=== PATIENT | male | born 1980 | race Caucasian/White ===

== ENCOUNTER 2020-12-26 18:37 | Emergency (ER) | payer SELFPAY ==
[~2020-12-26] VITALS: Ht 170.2 cm; Wt 90.9 kg
--- NOTE | 2020-12-26 18:46 | PHYS DOC ---
Adult General HPI HPI Patient is a 40-year-old male, with no endorsed past medical history who presents with a chief complaint of right lower leg wound and concern for infection. States that last or Thursday he thinks he may have had an ingrown hair or cut his right lower extremity on something but is not sure what. States over the last several days it increased in size, redness and tenderness. States the tenderness is approximately 5 out of 10, dull and achy in nature. Also endorses recent onset dysuria without hematuria, discharge, genital lesions or trauma to the area. States he did have unprotected intercourse recently and was concerned about sexually transmitted infections and would like to be tested and treated for these. Denies any recent travel, fevers, chest pain, shortness of breath, abdominal pain, nausea, vomiting, hematuria, diarrhea or blood in the stool. States he is otherwise eating and drinking normally for him. States he is making urine and stool normally for him. Review of Systems Review of Systems Review of systems otherwise unremarkable except noted in HPI. Physical Exam Physical Exam Constitutional: Well developed, well nourished, no acute distress, non-toxic appearance. [] HENT: Normocephalic, atraumatic, bilateral external ears normal, oropharynx moist, no oral exudates, nose normal. [] Eyes: conjunctiva normal, no discharge. [] Cardiovascular:Heart rate regular rhythm] Lungs & Thorax: Bilateral breath sounds clear to auscultation [] Abdomen: soft, no tenderness, no masses, no pulsatile masses. [] Skin: Warm, dry, Extremities: Patient has an area on anterior right lower extremity that has an approximately 2 cm centralized lesion, scabbed over, elevated, indurated with no obvious fluctuance, with surrounding erythema spreading out several centimeters in all directions with some mild lower extremity edema. Neurologic: Alert and oriented X 3, normal motor function, normal sensory function, no focal deficits noted. [] Psychologic: Affect normal, judgement normal, mood normal. [] EKG EKG [] Radiology/Procedures Radiology/Procedures [] Heart Score C/O Chest Pain: No Risk Factors: Risk Factors: DM, Current or recent (<one month) smoker, HTN, HLP, family hi story of CAD, obesity. Risk Scores: Risk Factors: DM, Current or recent (<one month) smoker, HTN, HLP, family history of CAD, obesity. Course & Med Decision Making Course & Med Decision Making Patient is a 40-year-old male who presents with right lower extremity wound and concern for infection as well as concern for STI Vital signs not concerning. Physical exam noted above. Patient given Tylenol and ibuprofen for discomfort. [] Laboratory analysis not concerning. Imaging of the area with no obvious osseous abnormalities or gas formation. For concern of STI, patient opted for treatment today with IM Rocephin and a azithromycin. Advised that results of his STI testing would probably be available in 24 to 48 hours and he would be contacted but he could also feel free to call and check in. For lower extremity cellulitis, patient was offered admission for IV antibiotics. Patient stated he would not stay in the emergency department, and just wanted outpatient treatment. Gave risks of trying to treat his cellulitis with oral antibiotics including complete failure, partial improvement and then reemergence and complete resolution. Advised that it is quite possible that oral antibiotics may not work completely and he could experience worsening symptoms of the wound, systemic infection, severe illness, disability and/or and or circumstances. Patient states that he feels that the oral antibiotics will work and would like to try that. Gave strict return precautions to the ED. Patient grateful, verbalized understanding and agreed with plan of discharge. Dragon Disclaimer Dragon Disclaimer This electronic medical record was generated, in whole or in part, using a voice recognition dictation system. Departure Departure: Impression: Primary Impression: Cellulitis of right lower extremity Additional Impression: Concern about STD in male without diagnosis Disposition: 01 DC HOME SELF CARE/HOMELESS Condition: GOOD Referrals: PCP,NO (PCP) Patient Instructions: Cellulitis, [id number], Sexually Transmitted Disease, [id number] Additional Instructions: Please read the attached information. You were offered admission but decided to try outpatient therapy first. You were given the treatment for gonorrhea and chlamydia today in the emergency department. Your laboratory testing for these should result in 24 to 48 hours and you will be notified. Please feel free to call with for your results as well. You were started on clindamycin and antibiotic used for your cellulitis. Please take all medications as exactly prescribed with food until medicine is gone. Please follow-up as soon as you can with your primary care physician to discuss your ED visit and set up a follow-up in the next week to 10 days for a wound check. As discussed extensively, please come back to the emergency department with any new or concerning symptoms. Scripts Clindamycin Hcl (CLINDAMYCIN HCL) 150 Mg Capsule 3 CAP PO TID for cellulitis for 10 Days, #90 CAP Prov: BEV BAHENA MD 12/26/20 Problem Qualifiers BEV BAHENA MD Dec 26, 2020 18:46
[2020-12-26] MEDS ORDERED: ACETAMINOPHEN 500 MG TABLET PO ONE (19:00)
[2020-12-26] MEDS ORDERED: IBUPROFEN 600 MG TABLET. PO ONE (19:00)
[2020-12-26 19:15] LABS: BASO # 0.1 x10^3/uL (0.0-0.2); BASO % 1 % (0-3); EOS # 0.2 x10^3/uL (0.0-0.7); EOS % 3 % (0-3); HEMOGLOBIN 14.2 g/dL (13.0-17.5); LYMPH # 1.7 x10^3/uL (1.0-4.8); LYMPH % 23 % (24-48); MEAN CORPUSCULAR HEMOGLOBIN 31 pg (25-35); MEAN CORPUSCULAR HGB CONC 35 g/dL (31-37); MEAN CORPUSCULAR VOLUME 89 fL (79-100); MONO # 0.6 x10^3/uL (0.0-1.1); MONO % 8 % (0-9); NEUT # 4.8 x10^3uL (1.8-7.7); NEUT % 66 % (31-73); PLATELET COUNT 351 x10^3/uL (140-400); RED BLOOD COUNT 4.58 x10^6/uL (4.30-5.70); RED CELL DISTRIBUTION WIDTH 13.5 % (11.5-14.5); WHITE BLOOD COUNT 7.2 x10^3/uL (4.0-11.0)
[2020-12-26 19:28] LABS: CALCIUM 8.6 mg/dL (8.5-10.1); CREATININE 1.1 mg/dL (0.7-1.3); GFR 74.5; POTASSIUM 3.8 mmol/L (3.5-5.1)
[2020-12-26 19:40] VITALS: BP 137/77
--- NOTE | 2020-12-26 19:45 | RAD ---
INDICATION: Reason: Trauma to right anterior lower mid leg with sore, pain / Spl. Instructions: / Hi story: COMPARISON: None. IMPRESSION: Right lower le views obtained. Soft tissue swelling is identified. Degenerative changes at the kn ee and ankle. No definite tibia or fibula fracture. Electronically signed by: Abdullahi Membreno MD (12/26/2020 7:43 PM) [id number]
[2020-12-26] MEDS ORDERED: cefTRIAXone IM 500 MG VIAL. IM ONE (20:00)
[2020-12-26] MEDS ORDERED: AZITHROMYCIN 250 MG TABLET. PO ONE (20:00)
[2020-12-26] MEDS ORDERED: CLINDAMYCIN HCL 150 MG CAPSULE PO ONE (20:00)
[2020-12-26] MEDS ORDERED: CLIN150C15 PO (20:11)
[2020-12-26 20:37] LABS: CLARITY,URINE CLEAR; COLOR,URINE YELLOW
[2020-12-26 20:38] LABS: BACTERIA,URINE 0 /HPF (0-FEW); BILIRUBIN,URINE NEG (NEG); GLUCOSE,URINE NEG (NEG); NITRITE,URINE NEG (NEG); RBC,URINE 0 /HPF (0-2); UROBILINOGEN,URINE 0.2 mg/dL (0.2 mg/dL); WBC,URINE 0 /HPF (0-4)
== END 2020-12-26 20:34 | disposition home or self-care (01) ==
LOC: ER 18:37
DX: L03.115 Cellulitis of right lower limb (principal); Z20.2 Contact with and (suspected) exposure to infections with a predominantly sexual mode of transmission
CPT/HCPCS: 36415; 73590; 80048; 81001; 83605; 85025; 96372; 99284; J0696

== ENCOUNTER 2021-02-12 03:09 | Emergency (ER) | payer SELFPAY ==
[~2021-02-12] VITALS: Ht 170.2 cm; Wt 81.6 kg
[~2021-02-12 03:09] MED LIST: CLIN150C15 PO
[2021-02-12 03:14] VITALS: BP 165/105
--- NOTE | 2021-02-12 03:20 | PHYS DOC ---
Past History Past Medical History: No Pertinent History Past Surgical History: No Surgical History Alcohol Use: None General Adult HPI: HPI: ".. I think I got a snake bite... about 2 pm today..on the back of my head and neck.. .. not sure.. they can sneak up on you... I was just standing around doing nothing... When I got bit by a snake....l..also cut my thumb......"... Patient is a 40 year old male who presents with above hx and complaints of snake bite to back of neck. There is no findings of examination or bite petit on the back of his neck or head. Patient also complaining of a superficial cut to her right thumb. Both injury occurred at approximately 1400 hrs. yesterday. Patient has been drinking heavily since yesterday. Patient reportedly up-to-date with his tetanus. No recent travel. No specific ill contacts. No history immunosuppression. Patient does admit to heavy alcohol use. Patient does smoke tobacco. Patient last seen in the emergency room on 12/26/2020 for concerns about an STD. After unprotected sex.. Patient reportedly did complete this course of clindamycin 150 mg 3 times a day for 10 days. Patient states he does not follow-up with primary physician just goes to the emergency room for all his medical care Review of Systems: Review of Systems: Constitutional: Denies fever or chills Eyes: Denies change in visual acuity HENT: Denies nasal congestion or sore throat. Complains of snakebite to the back of the neck Respiratory: Denies cough or shortness of breath Cardiovascular: Denies chest pain or edema GI: Denies abdominal pain, nausea, vomiting, bloody stools or diarrhea : Denies dysuria Musculoskeletal: Denies back pain or joint pain Integument: Denies rash. Complains of right thumb abrasion/laceration Neurologic: Denies headache, focal weakness or sensory changes Endocrine: Denies polyuria or polydipsia Lymphatic: Denies swollen glands Psychiatric: Denies depression or anxiety Family History: Family History: Noncontributory to presentation Current Medications: Current Meds: See nursing for home meds Allergies: Allergies: Allergies Coded Allergies Type Severity Reaction Last Updated Verified No Known Drug Allergies 12/26/20 No Physical Exam: PE: Constitutional: no acute distress, intoxicated in appearance. Has strong odor of alcoholic beverage on his breath. HENT: Normocephalic, atraumatic, bilateral external ears normal, oropharynx moist, no oral exudates, nose normal. [] Eyes: PERRLA, EOMI, conjunctiva injected,, no discharge. [] Neck: Normal range of motion, no tenderness, supple, no stridor. [] Cardiovascular:Heart rate regular rhythm, no murmur [] Lungs & Thorax: Bilateral breath sounds equal apex with scattered wheezes on auscultation [] Abdomen: Bowel sounds normal, soft, no tenderness, no masses, no pulsatile masses. [] Skin: Warm, dry, no erythema, no rash. Small 2 cm superficial aceration to his right thumb-. Patient is right-hand dominant. Back: No tenderness, no CVA tenderness. [] Extremities: No tenderness, no cyanosis, no clubbing, ROM intact, no edema. [] Neurologic: Alert and oriented X 3, moves all extremities on request, does have distal sensory, no focal deficits noted. Patient has wide staggering gait. Is able to maintain gait. [id number] off. Unable to maintain balance with eyes closed. Buckle Gluer equal. Psychologic: Affect normal, judgement appears to be impaired by alcohol, mood normal. [] EKG: EKG: [] Radiology/Procedures: Radiology/Procedures: [] Heart Score: C/O Chest Pain: N/A Risk Factors: Risk Factors: DM, Current or recent (<one month) smoker, HTN, HLP, family history of CAD, obesity. Risk Scores: Score 0 - 3: 2.5% MACE over next 6 weeks - Discharge Home Score 4 - 6: 20.3% MACE over next 6 weeks - Admit for Clinical Observation Score 7 - 10: 72.7% MACE over next 6 weeks - Early Invasive Strategies Course & Med Decision Making: Course & Med Decision Making Pertinent Labs and Imaging studies reviewed. (See chart for details) Procedure note- wound care-hand washed with surgical soap and water copiously. Application antibiotic ointment to the laceration. Dressed with Band-Aid and reinforced with tape. Patient keep laceration clean and dry. Once initial dressing removed apply Polysporin 4 times a day. Monitor for infection. Follow-up primary care. Encouraged patient follow-up with primary care. Encourage patient avoid further alcohol tonight.. Encourage patient not to drive his vehicle. Encourage patient stop smoking. Advised patient return if any concerns. Advised patient there is no obvious state bite to the back of his neck or head. Impression: 1. Intoxicated-alcohol (patient does admit to heavy alcohol use the past 24 hours.) 2. Superficial laceration/abrasion right thumb 3. No findings of snakebite on the neck or head [] Dragon Disclaimer: Dragon Disclaimer: This electronic medical record was generated, in whole or in part, using a voice recognition dictation system. Departure Departure: Referrals: PCP,NO (PCP) Tavo Disclaimer This chart was dictated in whole or in part using Voice Recognition software in a busy, high-work load, and often noisy Emergency Department environment. It may contain unintended and wholly unrecognized errors or omissions. MEGA RICE MD February 12, 2021 03:20
== END 2021-02-12 03:32 | disposition left against medical advice (07) ==
LOC: ER 03:09
DX: S61.011A Laceration without foreign body of right thumb without damage to nail, initial encounter (principal); F10.129 Alcohol abuse with intoxication, unspecified; Y90.9 Presence of alcohol in blood, level not specified; W26.8XXA Contact with other sharp object(s), not elsewhere classified, initial encounter; Y93.89 Activity, other specified; Y92.89 Other specified places as the place of occurrence of the external cause; Y99.8 Other external cause status
CPT/HCPCS: 99281; 99282